=== PATIENT | male | born 1965 | race American Indian/Alaskan Native ===

== ENCOUNTER 2018-09-05 21:30 | Inpatient (IN) | payer MEDICAID ==
[2018-09-05 22:52] LABS: Hematocrit 27.3 % (35.5-45.6); Hemoglobin 9.1 gm/dl (11.8-15.2); Mean Corpuscular HGB Conc 33 % (32-34); Mean Corpuscular Volume 93 fl (84-94); Platelet Count 381 K/mm3 (140-440); Red Blood Count 2.95 M/mm3 (3.65-5.03); Red Cell Distribution Width 16.1 % (13.2-15.2)
[2018-09-05 23:10] LABS: Alanine Aminotransferase 14 units/L (7-56); BUN/Creatinine Ratio 22; Blood Urea Nitrogen 20 mg/dL (9-20); Calcium 8.9 mg/dL (8.4-10.2); Hemolysis Index 3
[2018-09-05] MEDS ORDERED: NACL 0.9% 1000 ML 1,000 ML ONE (23:16)
--- NOTE | 2018-09-05 23:39 | XRay Report ---
FINAL REPORT EXAM: XR KNEE 1-2V RT HISTORY: pain s/p fall TECHNIQUE: Left knee two views PRIORS: None. FINDINGS: Patient is status post below the knee amputation No lytic bony lesions are identified. No soft tissue gas appreciated. There is a vascular stent along the course of the distal SFA and popliteal artery. IMPRESSION: Status post BKA Vascular stent Otherwise no acute findings
[2018-09-05] MEDS ORDERED: PERCOCET 5/325 ONE (23:46)
[2018-09-05] MEDS ORDERED: PERCOCET 5/325 PO ONE (23:52)
--- NOTE | 2018-09-05 23:56 | Emergency Department Report ---
ED Extremity Problem HPI - General Chief complaint: Extremity Injury, Lower Stated complaint: FALL, RT LEG PAIN Time Seen by Provider: 09/05/18 22:28 Source: patient Mode of arrival: Ambulatory Limitations: No Limitations - History of Present Illness Initial comments: 53-year-old male status post right BKA 3 days ago presents to ED after falling onto his stump earlier this evening. He reported profuse bleeding from stump. Tourniquet was placed and patient brought to ER. MD Complaint: extremity pain, other (bleeding) -: This evening Location: right, lower extremity Quality: aching Consistency: constant Improves with: nothing Worsens with: nothing - Related Data Home Medications Medication Instructions Recorded Confirmed Last Taken Trazodone HCl [traZODone] 300 mg PO QHS 08/24/18 08/24/18 Unknown Previous Rx's Medication Instructions Recorded Last Taken Type Nicotine [Habitrol] 14 mg TD QDAY #30 patch 08/31/18 Unknown Rx oxyCODONE /ACETAMINOPHEN [Percocet 1 tab PO Q6H PRN #14 tablet 08/31/18 Unknown Rx 5/325 mg] ALPRAZolam [Xanax TAB] 0.25 mg PO BID PRN #14 tab 09/03/18 Unknown Rx Allergies Allergy/AdvReac Type Severity Reaction Status Date / Time No Known Allergies Allergy Verified 09/05/18 21:38 ED Review of Systems ROS: Stated complaint: FALL, RT LEG PAIN Other details as noted in HPI Comment: All other systems reviewed and negative Musculoskeletal: other (reports pain and bleeding from stump) ED Past Medical Hx - Past Medical History Hx Hypertension: No Hx Heart Attack/AMI: No Hx Congestive Heart Failure: No Hx Diabetes: No Hx Deep Vein Thrombosis: No Hx Pulmonary Embolism: No Hx Liver Disease: No Hx Renal Disease: No Hx Sickle Cell Disease: No Hx Arthritis: No Hx Seizures: No Hx Kidney Stones: No Hx Asthma: Yes Hx COPD: No Hx Tuberculosis: No Hx Dementia: No Hx HIV: No Additional medical history: neuropathy - Surgical History Hx Coronary Stent: No Hx Pacemaker: No Hx Internal Defibrillator: No - Social History Smoking Status: Never Smoker Substance Use Type: None - Medications Home Medications: Home Medications Medication Instructions Recorded Confirmed Last Taken Type Trazodone HCl [traZODone] 300 mg PO QHS 08/24/18 08/24/18 Unknown History Nicotine [Habitrol] 14 mg TD QDAY #30 patch 08/31/18 Unknown Rx oxyCODONE /ACETAMINOPHEN [Percocet 1 tab PO Q6H PRN #14 tablet 08/31/18 Unknown Rx 5/325 mg] ALPRAZolam [Xanax TAB] 0.25 mg PO BID PRN #14 tab 09/03/18 Unknown Rx ED Physical Exam - General Limitations: No Limitations General appearance: alert, in no apparent distress - Head Head exam: Present: atraumatic, normocephalic - Eye Eye exam: Present: normal appearance - ENT ENT exam: Present: mucous membranes moist - Neck Neck exam: Present: normal inspection - Respiratory Respiratory exam: Present: normal lung sounds bilaterally. Absent: respiratory distress - Cardiovascular Cardiovascular Exam: Present: normal rhythm, tachycardia - GI/Abdominal GI/Abdominal exam: Present: soft. Absent: distended, tenderness - Extremities Exam Extremities exam: Present: other (tourniquet and bloody dressings removed; no active bleeding present, all divine intact) - Neurological Exam Neurological exam: Present: alert, oriented X3 - Psychiatric Psychiatric exam: Present: normal affect, normal mood - Skin Skin exam: Present: warm, dry, intact, normal color ED Course Vital Signs 09/05/18 09/05/18 09/05/18 21:37 21:38 23:01 Temperature 98.5 F 98.5 F Pulse Rate 106 H 107 H Respiratory 18 18 18 Rate Blood Pressure 161/86 161/86 O2 Sat by Pulse 99 99 100 Oximetry - Consultations Consultation #1: 09/05/18 23:[address] Antunez. Due to amount of bleeding, wants pt admitted for observation to check repeat Hb in the AM. ED Medical Decision Making - Lab Data Result diagrams: 09/05/18 22:34 09/05/18 22:34 - Radiology Data Radiology results: report reviewed, image reviewed - Medical Decision Making Hemoglobin stable compared to when he was inpatient a few days ago. No active bleeding at this time. No fracture or abnormality on xray. Will admit for observation and repeat Hb in the AM. - Differential Diagnosis anemia, fracture, hematoma Critical care attestation.: If time is entered above; I have spent that time in minutes in the direct care of this critically ill patient, excluding procedure time. ED Disposition Clinical Impression: Fall, Amputation stump injury, Hemorrhage Disposition: DC-[id number] OP ADMIT IP TO THIS HOSP Is pt being admited?: Yes Condition: Stable Time of Disposition: 00:02
[2018-09-06] MEDS ORDERED: ZOFRAN IV PRN (03:06)
[2018-09-06] MEDS ORDERED: TYLENOL PO PRN (03:06)
[2018-09-06] MEDS ORDERED: SODIUM CHLORIDE FLUSH SYRINGE 10 ML IV PRN (03:06)
[2018-09-06] MEDS ORDERED: MORPHINE IV PRN ×3 (03:06→12:00)
--- NOTE | 2018-09-06 03:13 | History and Physical Report ---
History of Present Illness Date of examination: 09/06/18 Date of admission: 08/06/2019 Chief complaint: Resting injury History of present illness: Patient is a 53-year-old male with past medical history of chronic leg wounds, embolization, nicotine abuse and insomnia. Patient underwent a right BKA on 09/03 2018, and he was discharged home. Patient states that today as he was using his walker when he fell and hurts his right stump, he started bleeding profusely, he noticed the bleeding would not stop, he decided to come to the ER for evaluation. In the ER, patient complains of pain and swelling, he denies any fever, denied chills, denied any head injury. Patient was evaluated in the ER, surgery was consulted for evaluation and he is admitted for further evaluation and treatment. Medications and Allergies Allergies Allergy/AdvReac Type Severity Reaction Status Date / Time No Known Allergies Allergy Verified 09/05/18 21:38 Home Medications Medication Instructions Recorded Confirmed Last Taken Type RX: Trazodone HCl [traZODone] 300 mg PO QHS 08/24/18 08/24/18 Unknown History RX: Nicotine [Habitrol] 14 mg TD QDAY #30 patch 08/31/18 Unknown Rx RX: oxyCODONE /ACETAMINOPHEN 1 tab PO Q6H PRN #14 tablet 08/31/18 Unknown Rx [Percocet 5/325 mg] RX: ALPRAZolam [Xanax TAB] 0.25 mg PO BID PRN #14 tab 09/03/18 Unknown Rx Active Meds: Active Medications Acetaminophen (Tylenol) 650 mg PO Q4H PRN PRN Reason: Pain MILD(1-3)/Fever >100.5/CISSE Acetaminophen/Hydrocodone Bitart ([place] 5/325) 2 each PO Q6H PRN PRN Reason: Pain, Moderate (4-6) Famotidine (Pepcid) 10 mg IV BID LEA Sodium Chloride (Nacl 0.9% 1000 Ml) 1,000 mls @ 100 mls/hr IV DIRECT LEA Morphine Sulfate (Morphine) 2 mg IV Q4H PRN PRN Reason: Pain, Moderate (4-6) Ondansetron HCl (Zofran) 4 mg IV Q8H PRN PRN Reason: Nausea And Vomiting Sodium Chloride (Sodium Chloride Flush Syringe 10 Ml) 10 ml IV BID LEA Sodium Chloride (Sodium Chloride Flush Syringe 10 Ml) 10 ml IV PRN PRN PRN Reason: LINE FLUSH Exam - Constitutional Vitals: Temp Pulse Resp BP Pulse Ox 98.5 F 107 H 18 161/86 100 09/05/18 21:38 09/05/18 21:38 09/05/18 23:01 09/05/18 21:38 09/05/18 23:01 Results - Labs CBC & Chem 7: 09/06/18 22:45 09/05/18 22:34 Labs: Laboratory Last Values WBC 4.8 K/mm3 (4.5-11.0) 09/05/18 22:34 RBC 2.95 M/mm3 (3.65-5.03) L 09/05/18 22:34 Hgb 9.1 gm/dl (11.8-15.2) L 09/05/18 22:34 Hct 27.3 % (35.5-45.6) L 09/05/18 22:34 MCV 93 fl (84-94) 09/05/18 22:34 MCH 31 pg (28-32) 09/05/18 22:34 MCHC 33 % (32-34) 09/05/18 22:34 RDW 16.1 % (13.2-15.2) H 09/05/18 22:34 Plt Count 381 K/mm3 (140-440) 09/05/18 22:34 Sodium 136 mmol/L (137-145) L 09/05/18 22:34 Potassium 4.9 mmol/L (3.6-5.0) D 09/05/18 22:34 Chloride 98.9 mmol/L (98-107) 09/05/18 22:34 Carbon Dioxide 31 mmol/L (22-30) H 09/05/18 22:34 Anion Gap 11 mmol/L 09/05/18 22:34 BUN 20 mg/dL (9-20) 09/05/18 22:34 Creatinine 0.9 mg/dL (0.8-1.5) 09/05/18 22:34 Estimated GFR > 60 ml/min 09/05/18 22:34 BUN/Creatinine Ratio 22 % 09/05/18 22:34 Glucose 103 mg/dL (75-100) H 09/05/18 22:34 Calcium 8.9 mg/dL (8.4-10.2) 09/05/18 22:34 Total Bilirubin 0.20 mg/dL (0.1-1.2) 09/05/18 22:34 AST 16 units/L (5-40) 09/05/18 22:34 ALT 14 units/L (7-56) 09/05/18 22:34 Alkaline Phosphatase 91 units/L (35-129) 09/05/18 22:34 Total Protein 7.1 g/dL (6.3-8.2) 09/05/18 22:34 Albumin 3.0 g/dL (3.9-5) L 09/05/18 22:34 Albumin/Globulin Ratio 0.7 % 09/05/18 22:34 Assessment and Plan Assessment and plan: 1. Status post fall with right stump pain 2. Right stump swelling 3. Profuse bleeding due to injury 4. Insomnia Plan: Patient is admitted for right stump injury Applied dressing to the right kidney stump Check she was H and H every 6 hours [employer] surgeries for right stump injury Further plan per surgery recommendations Plan discussed with patient voiced understanding Patient's condition and Plan of care discussed with Dr. Aldana Advance Directives: Yes Contraindication Mechanical VTE Prophylaxis: Contraindicated (profuse bleeding) Plan of care discussed with patient/family: Yes
[2018-09-06] MEDS: NORCO 5/325 PO PRN ×4 (05:32→21:55)
[2018-09-06] MEDS: NACL 0.9% 1000 ML 1,000 ML IV SCH ×2 (05:34→14:23)
[2018-09-06] MEDS: SODIUM CHLORIDE FLUSH SYRINGE 10 ML IV SCH ×2 (10:00→21:57)
[2018-09-06] MEDS: PEPCID IV SCH ×2 (10:00→21:56)
[2018-09-06] MEDS ORDERED: PERCOCET 5/325 PO PRN (11:17)
[2018-09-06] MEDS ORDERED: XANAX PO PRN (11:17)
--- NOTE | 2018-09-06 12:17 | Progress Note ---
Assessment and Plan - Patient Problems (1) Amputation stump injury Current Visit: Yes Status: Acute Plan to address problem: 1) Pt can be discharged. 2) F/u in my office in 2 weeks. Subjective Date of service: 09/06/18 Narrative: Pt fell yesterday evening with "severe" bleeding from right BKA stump. Objective Vital Signs - 12hr 09/06/18 09/06/18 09/06/18 01:26 02:00 03:00 Temperature Pulse Rate 81 70 Respiratory 13 14 Rate Blood Pressure 121/82 130/75 O2 Sat by Pulse 94 97 Oximetry 09/06/18 09/06/18 09/06/18 04:00 05:05 05:32 Temperature 98.4 F Pulse Rate 77 Respiratory 17 20 Rate Blood Pressure 130/75 139/83 O2 Sat by Pulse 97 99 Oximetry 09/06/18 09/06/18 06:34 07:41 Temperature 98.0 F Pulse Rate 80 85 Respiratory 20 Rate Blood Pressure 123/84 O2 Sat by Pulse 97 Oximetry - Musculoskeletal other (Mild hematoma in right BKA stump. No bleeding from suture line.) - Labs 09/05/18 22:34 09/05/18 22:34 Diabetes panel 09/05/18 Range/Units 22:34 Sodium 136 L (137-145) mmol/L Potassium 4.9 D (3.6-5.0) mmol/L Chloride 98.9 (98-107) mmol/L Carbon Dioxide 31 H (22-30) mmol/L BUN 20 (9-20) mg/dL Creatinine 0.9 (0.8-1.5) mg/dL Glucose 103 H (75-100) mg/dL Calcium 8.9 (8.4-10.2) mg/dL AST 16 (5-40) units/L ALT 14 (7-56) units/L Alkaline Phosphatase 91 (35-129) units/L Total Protein 7.1 (6.3-8.2) g/dL Albumin 3.0 L (3.9-5) g/dL Calcium panel 09/05/18 Range/Units 22:34 Calcium 8.9 (8.4-10.2) mg/dL Albumin 3.0 L (3.9-5) g/dL Pituitary panel 09/05/18 Range/Units 22:34 Sodium 136 L (137-145) mmol/L Potassium 4.9 D (3.6-5.0) mmol/L Chloride 98.9 (98-107) mmol/L Carbon Dioxide 31 H (22-30) mmol/L BUN 20 (9-20) mg/dL Creatinine 0.9 (0.8-1.5) mg/dL Glucose 103 H (75-100) mg/dL Calcium 8.9 (8.4-10.2) mg/dL Adrenal panel 09/05/18 Range/Units 22:34 Sodium 136 L (137-145) mmol/L Potassium 4.9 D (3.6-5.0) mmol/L Chloride 98.9 (98-107) mmol/L Carbon Dioxide 31 H (22-30) mmol/L BUN 20 (9-20) mg/dL Creatinine 0.9 (0.8-1.5) mg/dL Glucose 103 H (75-100) mg/dL Calcium 8.9 (8.4-10.2) mg/dL Total Bilirubin 0.20 (0.1-1.2) mg/dL AST 16 (5-40) units/L ALT 14 (7-56) units/L Alkaline Phosphatase 91 (35-129) units/L Total Protein 7.1 (6.3-8.2) g/dL Albumin 3.0 L (3.9-5) g/dL
--- NOTE | 2018-09-06 13:02 | Event Note ---
Date: 09/06/18 Patient seen and examined, no acute distress, Continue current treatment plan. Anticipate discharge in am due to case management planning. Patient want crutches instead.
[2018-09-06 14:34] LABS: Hematocrit 27.3 % (35.5-45.6); Hemoglobin 9.2 gm/dl (11.8-15.2)
[2018-09-06] MEDS ORDERED: DESYREL PO SCH (22:00)
[2018-09-06] MEDS ORDERED: NON-FORMULARY (Trazodone Hcl [Trazodone] 300 MG) PO SCH (22:00)
[2018-09-06 23:22] LABS: Hematocrit 25.1 % (35.5-45.6); Hemoglobin 8.5 gm/dl (11.8-15.2)
[2018-09-07] MEDS: NACL 0.9% 1000 ML 1,000 ML IV SCH (01:43)
[2018-09-07] MEDS: PEPCID IV SCH (09:07)
[2018-09-07] MEDS: NORCO 5/325 PO PRN ×2 (09:15→15:17)
[2018-09-07] MEDS ORDERED: HABITROL TD SCH (10:00)
--- NOTE | 2018-09-07 10:12 | Discharge Summary ---
Providers - Providers Date of Admission: 09/06/18 04:11 Attending physician: SANDRA MILLER MD 09/05/18 23:59 Consult to Physician [CONS] Stat Comment: Consulting Provider: PAYAL MANLEY Physician Instructions: Reason For Exam: hemorrhage from stump Primary care physician: ROOPA WATSON Hospitalization Reason for admission: right bka stump injury Condition: Stable Hospital course: Patient is a 53-year-old male with past medical history of chronic leg wounds, embolization, nicotine abuse and insomnia. Patient underwent a right BKA on 09/03 2018, he was discharged home. Patient states that today as he was using his walker he fall and hurts his right stump, he started bleeding profusely, he noticed the bleeding would not stop, he decided to come to the ER for evaluation. In the ER, patient complains of rest pain and swelling, he denies any fever, denied chills, denied any head injury. Patient was evaluated in the ER, surgery was consulted and patient is admitted for further evaluation and treatment. Patient bleeding stopped, He was note to have a mild hematoma to the site. surgery evaluaated and recommended patient can be discharge. He is agreeable and would go to his mothers home instead 1. Status post fall with right stump pain 2. Right stump swelling 3. Profuse bleeding due to injury 4. Insomnia Disposition: [id number] HOME [facility] Time spent for discharge: 35 mins Core Measure Documentation - Palliative Care Palliative Care/ Comfort Measures: Not Applicable - Core Measures Any of the following diagnoses?: none Exam - Physical Exam Narrative exam: - Physical exam Narrative exam: General appearance: Present: no acute distress, well-nourished - EENT Eyes: Present: PERRL, EOM intact ENT: hearing intact, clear oral mucosa, dentition normal - Neck Neck: Present: supple, normal ROM. Absent: enlarged thyroid, masses or JVD, carotid bruits - Respiratory Respiratory: bilateral: CTA - Cardiovascular Rhythm: regular - Extremities Extremities: no ischemia, pulses intact, normal temperature Extremity abnormal: RIGHT BKA - Abdominal General gastrointestinal: soft, non-tender, non-distended, normal bowel sounds - Integumentary Integumentary: Present: warm, Right BKA, TORO IN PLACE - Psychiatric Psychiatric: appropriate mood/affect, intact judgment & insight, cooperative - Neurologic Neurologic: CNII-XII intact - Constitutional Vitals: Temp Pulse Resp BP Pulse Ox 98.2 F 59 L 18 128/63 97 09/07/18 08:12 09/07/18 08:12 09/07/18 08:12 09/07/18 08:12 09/07/18 08:12 Plan Activity: advance as tolerated, fall precautions Diet: regular Special Instructions: record daily BP diary Follow up with: ROOPA WATSON MD [Primary Care Provider] - 3-5 Days
[2018-09-07] MEDS: SODIUM CHLORIDE FLUSH SYRINGE 10 ML IV SCH (10:18)
[2018-09-07 17:00] VITALS: BP 154/97
== END 2018-09-07 19:01 | disposition home health service (06) | DRG 914 ==
LOC: ED 21:30 → 4A 09-06 04:11
PROVIDERS: ADMIT Internal Medicine; ATTEND Internal Medicine
DX: S88.011A Complete traumatic amputation at knee level, right lower leg, initial encounter (principal); S80.11XA Contusion of right lower leg, initial encounter; F17.200 Nicotine dependence, unspecified, uncomplicated; G47.00 Insomnia, unspecified; J45.909 Unspecified asthma, uncomplicated; G62.9 Polyneuropathy, unspecified; W17.89XA Other fall from one level to another, initial encounter; Y93.01 Activity, walking, marching and hiking; Y99.8 Other external cause status; Z89.511 Acquired absence of right leg below knee; Z79.899 Other long term (current) drug therapy; Z91.81 History of falling; Y92.048 Other place in boarding-house as the place of occurrence of the external cause
CPT/HCPCS: 36415; 80053; 85014; 85018; 85027; G0378; J7030

== ENCOUNTER 2018-09-14 08:16 | Outpatient (CLI) | payer MEDICAID ==
[~2018-09-14 08:16] MED LIST: LACTATED RINGERS 1,000 ML ONE
[2018-09-14] MEDS ORDERED: XYLOCAINE TOPICAL 4% TP ONE (08:43)
== END 2018-09-14 08:17 | disposition home or self-care (01) ==
LOC: WOUND 08:16
PROVIDERS: ATTEND Surgery
DX: T87.89 Other complications of amputation stump (principal); M86.171 Other acute osteomyelitis, right ankle and foot; F41.9 Anxiety disorder, unspecified; Z87.891 Personal history of nicotine dependence; Y83.5 Amputation of limb(s) as the cause of abnormal reaction of the patient, or of later complication, without mention of misadventure at the time of the procedure
CPT/HCPCS: G0463; J7120; 99215

== ENCOUNTER 2018-09-22 10:25 | Outpatient (CLI) | payer MEDICAID ==
[2018-09-22] MEDS ORDERED: XYLOCAINE TOPICAL 4% TP NR (11:16)
== END 2018-09-22 10:26 | disposition home or self-care (01) ==
LOC: WOUND 10:25
PROVIDERS: ATTEND Surgery
DX: T87.89 Other complications of amputation stump (principal); E11.621 Type 2 diabetes mellitus with foot ulcer; L97.812 Non-pressure chronic ulcer of other part of right lower leg with fat layer exposed; F41.9 Anxiety disorder, unspecified; Z87.891 Personal history of nicotine dependence; Y83.5 Amputation of limb(s) as the cause of abnormal reaction of the patient, or of later complication, without mention of misadventure at the time of the procedure

== ENCOUNTER 2018-09-29 10:41 | Outpatient (CLI) | payer MEDICAID ==
[2018-09-29] MEDS ORDERED: XYLOCAINE TOPICAL 4% TP ONE (11:11)
[2018-09-29] MEDS ORDERED: SILVER NITRATE TP ONE (11:15)
== END 2018-09-29 10:42 | disposition home or self-care (01) ==
LOC: WOUND 10:41
PROVIDERS: ATTEND Surgery
DX: T87.89 Other complications of amputation stump (principal); E11.621 Type 2 diabetes mellitus with foot ulcer; L97.812 Non-pressure chronic ulcer of other part of right lower leg with fat layer exposed; F41.9 Anxiety disorder, unspecified; Z87.891 Personal history of nicotine dependence; Y83.5 Amputation of limb(s) as the cause of abnormal reaction of the patient, or of later complication, without mention of misadventure at the time of the procedure

== ENCOUNTER 2018-10-06 08:43 | Outpatient (CLI) | payer MEDICAID ==
[2018-10-06] MEDS ORDERED: SILVER NITRATE TP ONE (08:56)
[2018-10-06] MEDS ORDERED: XYLOCAINE TOPICAL 4% TP ONE (08:57)
== END 2018-10-06 08:44 | disposition home or self-care (01) ==
LOC: WOUND 08:43
PROVIDERS: ATTEND Surgery
DX: T87.89 Other complications of amputation stump (principal); E11.621 Type 2 diabetes mellitus with foot ulcer; L97.212 Non-pressure chronic ulcer of right calf with fat layer exposed; F41.9 Anxiety disorder, unspecified; Z87.891 Personal history of nicotine dependence; Y83.5 Amputation of limb(s) as the cause of abnormal reaction of the patient, or of later complication, without mention of misadventure at the time of the procedure

== ENCOUNTER 2018-10-20 10:29 | Outpatient (CLI) | payer MEDICAID ==
[2018-10-20] MEDS ORDERED: XYLOCAINE TOPICAL 2% 30ML TP ONE (11:00)
[2018-10-20] MEDS ORDERED: SILVER NITRATE TP ONE (11:00)
== END 2018-10-20 10:30 | disposition home or self-care (01) ==
LOC: WOUND 10:29
PROVIDERS: ATTEND Surgery
DX: T87.89 Other complications of amputation stump (principal); E11.622 Type 2 diabetes mellitus with other skin ulcer; L97.212 Non-pressure chronic ulcer of right calf with fat layer exposed; F41.9 Anxiety disorder, unspecified; Z87.891 Personal history of nicotine dependence; Y83.5 Amputation of limb(s) as the cause of abnormal reaction of the patient, or of later complication, without mention of misadventure at the time of the procedure

== ENCOUNTER 2018-11-17 10:27 | Outpatient (CLI) | payer MEDICAID | END 2018-11-17 10:28 | disposition home or self-care (01) | LOC: WOUND 10:27 | PROVIDERS: ATTEND Surgery | DX: T87.89 Other complications of amputation stump (principal); E11.622 Type 2 diabetes mellitus with other skin ulcer; L97.212 Non-pressure chronic ulcer of right calf with fat layer exposed; F41.9 Anxiety disorder, unspecified; Z87.891 Personal history of nicotine dependence; Y83.5 Amputation of limb(s) as the cause of abnormal reaction of the patient, or of later complication, without mention of misadventure at the time of the procedure ==

== ENCOUNTER 2018-12-22 10:00 | Outpatient (CLI) | payer MEDICAID | END 2018-12-22 10:01 | disposition home or self-care (01) | LOC: WOUND 10:00 | PROVIDERS: ATTEND Surgery | DX: T87.89 Other complications of amputation stump (principal); E11.622 Type 2 diabetes mellitus with other skin ulcer; L97.212 Non-pressure chronic ulcer of right calf with fat layer exposed; F41.9 Anxiety disorder, unspecified; Z87.891 Personal history of nicotine dependence; Y83.5 Amputation of limb(s) as the cause of abnormal reaction of the patient, or of later complication, without mention of misadventure at the time of the procedure ==

== ENCOUNTER 2019-10-07 13:05 | Outpatient (CLI) | payer MEDICAID ==
[2019-10-07] MEDS ORDERED: LIDOCAINE (4%) 40 MG/ML TOPICAL SOLN 50 ML BOTTLE TP ONE (13:06)
== END 2019-10-07 13:06 | disposition home or self-care (01) ==
LOC: WOUND 13:05
PROVIDERS: ATTEND Surgery
DX: T87.89 Other complications of amputation stump (principal); E11.622 Type 2 diabetes mellitus with other skin ulcer; L97.212 Non-pressure chronic ulcer of right calf with fat layer exposed; F41.9 Anxiety disorder, unspecified; Z87.891 Personal history of nicotine dependence; Y83.5 Amputation of limb(s) as the cause of abnormal reaction of the patient, or of later complication, without mention of misadventure at the time of the procedure
CPT/HCPCS: 11042; G0463; 99204; 99214

== ENCOUNTER 2020-06-29 08:47 | Outpatient (CLI) | payer MEDICAID | END 2020-06-29 08:48 | disposition home or self-care (01) | LOC: WOUND 08:47 | PROVIDERS: ATTEND Surgery | DX: T87.89 Other complications of amputation stump (principal); L02.415 Cutaneous abscess of right lower limb; F41.9 Anxiety disorder, unspecified; F17.210 Nicotine dependence, cigarettes, uncomplicated; Y83.5 Amputation of limb(s) as the cause of abnormal reaction of the patient, or of later complication, without mention of misadventure at the time of the procedure; Y92.238 Other place in hospital as the place of occurrence of the external cause | CPT/HCPCS: 99214; G0463 ==